=== PATIENT | male | born 1980 | race Caucasian/White ===

== ENCOUNTER → 2020-01-01 14:56 | Outpatient (BNVA) | payer OTHER, SELFPAY | PROVIDERS: PCP Family Medicine; Referring Provider Family Medicine; Visit Provider Internal Medicine | DX: E03.9 Hypothyroidism, unspecified (principal); R73.01 Impaired fasting glucose; F41.9 Anxiety disorder, unspecified; Z79.899 Other long term (current) drug therapy | CPT/HCPCS: 99204 ==

== ENCOUNTER 2020-01-03 08:20 | Outpatient (REF) | payer OTHER, SELFPAY ==
--- NOTE | 2020-01-03 08:26 | FL_ITS ---
PROCEDURE: XR UPPER GI SERIES WITH SMALL BOWEL CLINICAL INFORMATION: Abdominal pain. COMPARISON: None TECHNIQUE: Routine upper GI air contrast study followed by small bowel follow-through was performed. FINDINGS: Portal Administrator view of the abdomen reveals scattered stool in the colon. There are radiopaque tablets or capsules seen within the colon. Following oral administration of thick barium and effervescent granules there is normal propagation bolus from the oral cavity through the pharynx, esophagus into stomach without any evidence of obstruction, narrowing or stricture. The course, caliber and peristalsis of the stomach, duodenal bulb and the sweep are normal. There is no gastroesophageal reflux or hiatal hernia. The mucosal pattern of the stomach and the duodenum is normal. Sequential images obtained through the small bowel reveal significant delayed transit time of 3 hrs. Spot images through the ileocecal junction and the cecum reveal no abnormality involving terminal ileum or the ileal loops. The ileocecal junction is normal. Appendix is not seen. The cecum is normal. There is scattered stool seen throughout the entire colon. FLUOROSCOPY TIME: 3.4 minutes. DOSE AREA PRODUCT: 29.660 uGy-m2 (microgray-meter squared). FL/FL upper GI small bowel IMPRESSION: Unremarkable upper GI air contrast study and small bowel follow-through.
== END 2020-01-03 08:21 | disposition home or self-care (01) ==
LOC: HO.XRAY 08:20
PROVIDERS: Visit Provider Internal Medicine Gastroenterology
DX: R68.81 Early satiety (principal)
CPT/HCPCS: 74240; 74248

== ENCOUNTER 2020-01-08 16:16 | Outpatient (REF) | payer OTHER, SELFPAY ==
--- NOTE | 2020-01-08 16:21 | US_ITS ---
EXAMINATION: US THYROID CLINICAL INFORMATION: Hypothyroidism, unspecified. COMPARISON: None TECHNIQUE: Linear transducer tarango-scale and color Doppler examination with attention to the region of the thyroid. FINDINGS: SIZE: Measurements of the thyroid lobes and nodules are given in sagittal, anteroposterior and transverse dimensions respectively. Right Thyroid Lobe: 5.5 x 1.4 x 1.7 cm, volume 6.8 mL. Parenchyma: The gland echotexture is heterogeneous. Thyroid vascularity is increased. Left Thyroid Lobe: 4.9 x 1.3 x 1.6 cm, volume 5.3 mL. Parenchyma: The gland echotexture is heterogeneous. Thyroid vascularity is increased. Isthmus: 0.3 cm in maximum AP dimension. PARENCHYMA: There is fine micronodular parenchymal pattern which may be associated with Breanne's thyroiditis. There is no focal isolated dominant nodule. NODES: There is no lymphadenopathy demonstrated in the adjacent soft tissues. US/US thyroid IMPRESSION: 1. Thyroid within lower limits of normal size. There is bilateral symmetric increased parenchymal vascularity and fine micronodular pattern which may be associated with Breanne's thyroiditis. 2. No focal isolated dominant nodule or adenopathy.
== END 2020-01-08 16:17 | disposition home or self-care (01) ==
LOC: HO.US 16:16
PROVIDERS: Visit Provider Internal Medicine
DX: E03.9 Hypothyroidism, unspecified (principal)
CPT/HCPCS: 76536

== ENCOUNTER → 2020-01-20 09:46 | Outpatient (BNVA) | payer OTHER, SELFPAY | PROVIDERS: PCP Family Medicine; Visit Provider Internal Medicine Gastroenterology | DX: D64.9 Anemia, unspecified (principal); R10.84 Generalized abdominal pain; G89.29 Other chronic pain | CPT/HCPCS: 99212 ==

== ENCOUNTER 2020-01-21 12:45 | Outpatient (REF) | payer OTHER, SELFPAY ==
[2020-01-21 13:29] LABS: MANUAL DIFF FLAG NO
[2020-01-21 13:38] LABS: Basophils Percent Auto 0.2 % (0-2); Eosinophils Absolute Auto 0.1 X10*3/uL (0.0-0.4); Eosinophils Percent Auto 1.1 % (0-4); Hematocrit 40.6 % (42-52); Hemoglobin 12.6 g/dl (14.0-18.0); Imm Gran Abs Auto 0.02 X10*3/uL (0.00-0.03); Imm Gran Pct Auto 0.4 % (0.0-0.4); Lymphocytes Absolute Auto 1.3 X10*3/uL (1.2-4.9); Lymphocytes Percent Auto 24.2 % (20-40); Mean Corpuscular Hemoglobin 25.5 pg (27.0-33.0); Mean Platelet Volume 8.9 fL (9.4-12.4); Monocytes Absolute Auto 0.4 X10*3/uL (0.1-1.2); Monocytes Percent Auto 6.9 % (2-11); Neutrophils Absolute Auto 3.6 X10*3/uL (2.0-8.3); Neutrophils Percent Auto 67.2 % (45-73); Platelet Count 200 X10*3/uL (160-400); Red Blood Count 4.95 X10*6/uL (4.60-5.80); Red Cell Distribution Width 14.4 % (11.0-16.0); White Blood Count 5.4 X10*3/uL (4.8-10.8)
[2020-01-21 13:51] LABS: Estimated Average Glucose 120 mg/dL; Hemoglobin A1c % 5.8 %
[2020-01-21 13:54] LABS: Alanine Aminotransferase 67 U/L (0-40); Albumin Level 4.3 g/dL (3.5-5.0); Alkaline Phosphatase 47 U/L (39-117); Anion Gap 12 (12-20); Aspartate Amino Transferase 30 U/L (5-37); Bilirubin Total 0.7 mg/dL (0.0-1.0); Blood Urea Nitrogen 15 mg/dL (9-16); Calcium 9.2 mg/dL (8.4-10.2); Carbon Dioxide 31 mmol/L (22-29); Chloride 102 mmol/L (96-108); Estimated Glomerular Filt Rate > 60; Glucose Fasting 92 mg/dL (60-99); Potassium 4.8 mmol/l (3.3-5.1); Sodium 140 mmol/L (135-145); Total Protein 6.8 g/dL (6.5-8.0)
[2020-01-21 14:15] LABS: Free T4 (Free Thyroxine) 0.76 ng/dL (0.71-1.85); Thyroid Stimulating Hormone 1.86 uIU/mL (0.32-4.0)
[2020-01-21 14:28] LABS: Vitamin B12 588 pg/mL (200-900)
[2020-01-21 14:44] LABS: Amphetamine Screen Urine Not Detected (Not Detect); Barbiturates, Urine Not Detected (Not Detect); Benzodiazepines Screen Urine Not Detected (Not Detect); Cannabinoid Screen Urine Not Detected (Not Detect); Cocaine Screen Urine Not Detected (Not Detect); Opiate Screen Urine POSITIVE (Not Detect); Phencyclidine Screen Urine Not Detected (Not Detect)
[2020-01-21 16:17] LABS: Glucose 2 Hour PP 67 mg/dL (60-115)
[2020-01-22 22:03] LABS: Thyroglobulin Antibodies 5 IU/mL (< or = 1); Thyroid Peroxidase Antibodies 361 IU/mL (<9)
[2020-01-22 23:36] LABS: C Peptide 1.03 ng/mL (0.80-3.85)
[2020-01-23 01:32] LABS: Triiodothyronine T3 Total 81 ng/dL (76-181)
[2020-01-23 11:12] LABS: Insulin Level Total 5.5 uIU/mL
[2020-01-24 20:36] LABS: Glutamic acid decarboxylase Ab <5 IU/mL (<5)
[2020-01-28 00:01] LABS: Islet Cell Antibody Screen NEGATIVE (NEGATIVE)
[2020-01-28 14:42] LABS: Insulinoma associated 2 aatb <5.4 U/mL (<5.4)
== END 2020-01-21 12:46 | disposition home or self-care (01) ==
LOC: HO.LAB 12:45
PROVIDERS: PCP Family Medicine; Referring Provider Internal Medicine; Visit Provider Family Medicine
DX: D64.9 Anemia, unspecified (principal); R73.01 Impaired fasting glucose; F11.10 Opioid abuse, uncomplicated; E03.9 Hypothyroidism, unspecified; G89.29 Other chronic pain
CPT/HCPCS: 36415; 80053; 80307; 80354; 82607; 82951; 83036; 83525; 84439; 84443; 84480; 84681; 85025; 86255; 86341; 86376; 86800

== ENCOUNTER 2020-01-23 10:57 | Outpatient (REF) | payer OTHER, SELFPAY ==
--- NOTE | 2020-01-23 11:18 | PM.OP ---
Brief Operative Note Date of Service: 01/23/20 Surgeon: Pamela Rome DO EXAMINATION: US THYROID CLINICAL INFORMATION: Multinodular Thyroid COMPARISON: Prior TECHNIQUE: Linear transducer tarango-scale and color Doppler examination with attention to the region of the thyroid. FINDINGS: SIZE: Measurements of the thyroid lobes and nodules are given in sagittal, anteroposterior and transverse dimensions respectively. Right Thyroid Lobe: 5.5 x 1.5 x 1.7 cm, volume 7.2 mL. Parenchyma: The gland echotexture is diffusely heterogenous. Left Thyroid Lobe: 5.1 x 1.5 x 1.7 cm, volume 6.5 mL. Parenchyma: The gland echotexture is diffusely heterogenous. Isthmus: 0.2 cm in maximum AP dimension. The thyroid gland is small and heterogenous appearing. Multiple pseudonodules are visualized, but no true nodules. NODES: Lymph nodes not assessed. IMPRESSION: Small and heterogenous gland, with no true nodules visualized. Estimated blood loss (mL): 0
== END 2020-01-23 10:58 | disposition home or self-care (01) ==
LOC: HO.US 10:57
PROVIDERS: PCP Family Medicine; Visit Provider Internal Medicine
DX: E04.1 Nontoxic single thyroid nodule (principal)
CPT/HCPCS: 76536

== ENCOUNTER → 2020-02-19 11:45 | Outpatient (BNVA) | payer OTHER, SELFPAY | PROVIDERS: PCP Family Medicine; Referring Provider Family Medicine; Visit Provider Internal Medicine | DX: Z76.89 Persons encountering health services in other specified circumstances (principal) ==

== ENCOUNTER 2020-03-30 12:44 | Outpatient (REF) | payer OTHER, SELFPAY ==
[2020-03-30 14:02] LABS: Alanine Aminotransferase 48 U/L (0-40); Albumin Level 4.3 g/dL (3.5-5.0); Alkaline Phosphatase 55 U/L (39-117); Anion Gap 12 (12-20); Aspartate Amino Transferase 29 U/L (5-37); Bilirubin Total 0.7 mg/dL (0.0-1.0); Blood Urea Nitrogen 13 mg/dL (9-16); Calcium 9.3 mg/dL (8.4-10.2); Carbon Dioxide 31 mmol/L (22-29); Chloride 101 mmol/L (96-108); Estimated Glomerular Filt Rate > 60; Glucose Random 107 mg/dL (60-115); Potassium 4.9 mmol/l (3.3-5.1); Sodium 139 mmol/L (135-145); Total Protein 6.9 g/dL (6.5-8.0)
[2020-03-30 14:05] LABS: Glucose Urine UA NEG (NEG); Leukocyte Esterase Urine NEG (NEG); Nitrite Urine NEG (NEG); PH 7.5 (5.0-8.0); Specific Gravity - Urine 1.015 (1.005-1.025); Urine Blood NEG (NEG); Urine Ketones NEG (NEG); Urine Protein NEG (NEG-TRACE)
[2020-03-30 14:07] LABS: Appearance Urine CLOUDY; Color Urine YELLOW
[2020-03-30 14:15] LABS: Amphetamine Screen Urine Not Detected (Not Detect); Barbiturates, Urine Not Detected (Not Detect); Benzodiazepines Screen Urine POSITIVE (Not Detect); Cannabinoid Screen Urine Not Detected (Not Detect); Cocaine Screen Urine Not Detected (Not Detect); Opiate Screen Urine POSITIVE (Not Detect); Phencyclidine Screen Urine Not Detected (Not Detect)
[2020-03-30 14:26] LABS: Prostate Specific Antigen Scr 0.56 ng/mL (<0.05-4.0)
[2020-04-01 21:42] LABS: Norfentanyl, Ur >500.0 ng/mL (<0.5)
[2020-04-04 13:26] LABS: Testosterone, Free 77.4 pg/mL (35.0-155.0); Testosterone, Total 440 ng/dL (250-1100)
== END 2020-03-30 12:45 | disposition home or self-care (01) ==
LOC: HO.LAB 12:44
PROVIDERS: PCP Family Medicine; Visit Provider Family Medicine
DX: R10.84 Generalized abdominal pain (principal); G89.29 Other chronic pain; R68.82 Decreased libido; N52.9 Male erectile dysfunction, unspecified; Z87.438 Personal history of other diseases of male genital organs; Z12.5 Encounter for screening for malignant neoplasm of prostate
CPT/HCPCS: 80053; 80307; 80354; 81003; 84153; 84402; 84403

== ENCOUNTER → 2020-03-31 10:34 | Outpatient (BNVA) | payer OTHER, SELFPAY | PROVIDERS: PCP Family Medicine; Visit Provider Internal Medicine Gastroenterology ==

== ENCOUNTER 2020-04-24 13:57 | Outpatient (REF) | payer OTHER, SELFPAY | END 2020-04-24 13:58 | disposition home or self-care (01) | LOC: HO.LNP 13:57 | PROVIDERS: Visit Provider Family Medicine | DX: R05 Cough (principal); Z20.822 Contact with and (suspected) exposure to COVID-19 | CPT/HCPCS: U0003; U0005 ==

== ENCOUNTER 2020-05-11 15:44 | Outpatient (REF) | payer OTHER, SELFPAY | END 2020-05-11 15:45 | disposition home or self-care (01) | LOC: HO.LAB 15:44 | PROVIDERS: Visit Provider Internal Medicine | DX: Z20.822 Contact with and (suspected) exposure to COVID-19 (principal) | CPT/HCPCS: 36415; C9803; U0003; U0005 ==

== ENCOUNTER 2020-05-13 10:49 | Day surgery (SDC) | payer OTHER, SELFPAY ==
[2020-05-07 15:10] VITALS: BMI 22.2
--- NOTE | 2020-05-12 09:31 | HO.ANESPROP2 ---
Documented by User: Alexsandra Hagerney 05/12/20 09:34 HPI - Anesthesia Eval Consult details Narrative: 39yo M for Upper Endoscopy and Colonoscopy +COVID 04/2020. Repeated test 05/11/20: Results pending. chronic opioids PMFSH Active Problems Active Problems: All Active Problems (Updated 05/07/20 @ 15:12 by Lali Carter) Opioid abuse (Acute) Abdominal pain, chronic, generalized (Acute) Mild anemia (Acute) Anxiety (Acute) Rhinitis (Acute) Decreased libido (Acute) Erectile dysfunction (Acute) History of BPH (Acute) Cough (Acute) Thyroid nodule (Acute) Hypothyroidism (Acute) Elevated fasting blood sugar (Acute) Past Medical History Medical History Anxiety Depression Elevated fasting blood sugar GERD (gastroesophageal reflux disease) Hypothyroidism Lab test positive for detection of COVID-19 virus Mild anemia Opioid abuse Thyroid nodule Family History Family History Father T2DM (type 2 diabetes mellitus) Mother No problems noted. Sister No problems noted. Surgical History Surgical History Hx of endoscopy Hx of wisdom tooth extraction Social History Social History Household Members: None Alcohol intake: never Smoking Status: Former smoker Tobacco Type: Cigarette Smoking Quit Date: 2016 Use of substances other than those prescribed or required for medical reasons: Yes Substance Use Type: Opiates Substance Use Type Other:: occasionally purchases opiates (street) Substance Use Frequency: Occasionally Have you been hit, kicked, punched, or otherwise hurt by someone within the past year? 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 Meds Allergies Allergy/AdvReac Type Severity Reaction Status Date / Time gluten Allergy Mild Rash Verified 05/13/20 11:13 Home Medications Medication Instructions Recorded Confirmed Last Taken Type amitriptyline-chlordiazepoxide 25 1 tab PO BEDTIME 12/31/19 04/24/20 Unknown History mg-10 mg tablet pqqqjjlfpz-bdhvezgkjdfsg-pkacqqmm 1 tab PO BID 12/31/19 05/07/20 Unknown History 50 mg-325 mg-40 mg tablet cetirizine 10 mg tablet 10 mg PO DAILY 12/31/19 05/07/20 Unknown History chlorhexidine gluconate 0.12 % ml PO 12/31/19 02/19/20 Unknown History mouthwash clotrimazole-betamethasone 1 applic TOPICAL 12/31/19 04/24/20 Unknown History %-0.05 % topical cream cyclobenzaprine 10 mg tablet 10 mg PO BID PRN 12/31/19 02/19/20 Unknown History diclofenac sodium 75 mg 75 mg PO BID 12/31/19 02/19/20 Unknown History tablet,delayed release hydroxyzine HCl 50 mg tablet 50 mg PO BEDTIME PRN 12/31/19 02/19/20 Unknown History magnesium citrate 296 ml PO ONCE 12/31/19 02/19/20 Unknown History methylprednisolone 4 mg tablets in mg PO 12/31/19 02/19/20 Unknown History a dose pack oxycodone-acetaminophen 5 mg-325 1 tab PO Q4H PRN 12/31/19 05/07/20 Unknown History mg tablet trazodone 50 mg tablet 50 mg PO BEDTIME 12/31/19 05/07/20 Unknown History clonazepam 1 mg tablet 1 mg PO BEDTIME 03/20/20 05/07/20 Unknown History lactulose 10 g PO DAILY 05/07/20 05/07/20 Unknown History Exam Exam Date and Time: May 12, 2020 0931 Height,Weight and Vital Signs: Height 5 ft 10 in Weight 70.307 kg Pertinent Lab Results Pertinent Lab Results: Laboratory Tests 01/21/20 03/30/20 13:10 13:00 WBC 5.4 Hgb 12.6 L Hct 40.6 L Plt Count 200 Sodium 139 Potassium 4.9 Chloride 101 Carbon Dioxide 31 H BUN 13 Creatinine 0.95 Assessment and Plan Assessment Anesthesia Assessment: Chart Reviewed Documented by User: Alexa Horner 05/13/20 11:40 PMFSH Past Medical History Medical History Anxiety Depression Elevated fasting blood sugar GERD (gastroesophageal reflux disease) Hypothyroidism Lab test positive for detection of COVID-19 virus Mild anemia Opioid abuse Thyroid nodule Family History Family History Father T2DM (type 2 diabetes mellitus) Mother No problems noted. Sister No problems noted. Surgical History Surgical History Hx of endoscopy Hx of wisdom tooth extraction Social History Social History Household Members: None Alcohol intake: never Smoking Status: Former smoker Tobacco Type: Cigarette Smoking Quit Date: 2016 Use of substances other than those prescribed or required for medical reasons: Yes Substance Use Type: Opiates Substance Use Type Other:: occasionally purchases opiates (street) Substance Use Frequency: Occasionally Have you been hit, kicked, punched, or otherwise hurt by someone within the past year? 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 Meds Allergies Allergy/AdvReac Type Severity Reaction Status Date / Time gluten Allergy Mild Rash Verified 05/13/20 11:13 Home Medications Medication Instructions Recorded Confirmed Last Taken Type amitriptyline-chlordiazepoxide 25 1 tab PO BEDTIME 12/31/19 04/24/20 Unknown History mg-10 mg tablet biltqgipkb-ecdfnzstgaskh-zmqddnzj 1 tab PO BID 12/31/19 05/07/20 Unknown History 50 mg-325 mg-40 mg tablet cetirizine 10 mg tablet 10 mg PO DAILY 12/31/19 05/07/20 Unknown History chlorhexidine gluconate 0.12 % ml PO 12/31/19 02/19/20 Unknown History mouthwash clotrimazole-betamethasone 1 applic TOPICAL 12/31/19 04/24/20 Unknown History %-0.05 % topical cream cyclobenzaprine 10 mg tablet 10 mg PO BID PRN 12/31/19 02/19/20 Unknown History diclofenac sodium 75 mg 75 mg PO BID 12/31/19 02/19/20 Unknown History tablet,delayed release hydroxyzine HCl 50 mg tablet 50 mg PO BEDTIME PRN 12/31/19 02/19/20 Unknown History magnesium citrate 296 ml PO ONCE 12/31/19 02/19/20 Unknown History methylprednisolone 4 mg tablets in mg PO 12/31/19 02/19/20 Unknown History a dose pack oxycodone-acetaminophen 5 mg-325 1 tab PO Q4H PRN 12/31/19 05/07/20 Unknown History mg tablet trazodone 50 mg tablet 50 mg PO BEDTIME 12/31/19 05/07/20 Unknown History clonazepam 1 mg tablet 1 mg PO BEDTIME 03/20/20 05/07/20 Unknown History lactulose 10 g PO DAILY 05/07/20 05/07/20 Unknown History Exam Airway Mallampati Class: II TM Dist: >3cm Neck ROM: Full Loose/Missing/Broken Teeth: No Heart: RRR Lungs: CTA Assessment and Plan Assessment Anesthesia Assessment: Anesthesia Plan Discussed and Chart Reviewed Final Anesthetic Review NPO: Yes Final Preanesthetic Review: Meds/Allgs Chart Reviewed, Consent Obtained/Reviewed and Anes Risks/Benef Reviewed Patient Risk: Intermediate Procedure Risk: Intermediate Anesthetic Plan Anesthetic Plan: MAC: Disposition: Standard PACU
[2020-05-13 11:10] VITALS: BP 112/77; PULSE 83; RESP 18; TEMP 36.7; O2SAT 99
[2020-05-13] MEDS: Lactated Ringers 1,000 ML 100 ML IVCONT (11:39)
--- NOTE | 2020-05-13 11:51 | P.HPSUR_ITS ---
Pre-Procedural Eval Section B Chief Complaint: Anemia,Abd Pain Relevant Family History (Specify if Yes): No Relevant Social History: None Present Medications: see Short Stay Collaborative assessment Medical History: Significant History (Anxiety Depression Elevated fasting blood sugar GERD (gastroesophageal reflux disease) Hypothyroidism Lab test positive for detection of COVID-19 virus Mild anemia Opioid abuse Thyroid nodule) History of Previous Operations: Relevant previous surgery/procedure and date(s) (wisdom tooth) Allergies: Allergies Allergy/AdvReac Type Severity Reaction Status Date / Time gluten Allergy Mild Rash Verified 05/13/20 11:13 Review of Systems Sugical H&P ROS: Negative: Constitution, Cardiovascular, Respiratory, Neurological, Psychiatric, Hem-Onc, Allergic/Immunologic, Gastrointestinal, Genitourinary, Musculoskeletal, Integumentary, Endocrine and Eyes/Ears /Nose/Throat Exam Surgical H&P Exam: Normal: HEENT, Normal: Heart, Normal: Lungs, Normal: Extremities, Normal: Abdomen, Normal: Skin and Normal: Neurological Plan Diagnosis/Plan: Unchanged I have reviewed the history and physical and performed a pertinent physical examination on my patient. No changes have occurred unless specified.
--- NOTE | 2020-05-13 12:15 | PM.OP ---
Brief Operative Note Date of Service: 05/13/20 Pre-op diagnosis: anemia, abdo pain Post-op diagnosis: same Procedure: see op note Surgeon: Socrates Farisa MD Anesthesia: MAC Estimated blood loss (mL): 0 Condition: stable Disposition: PACU
--- NOTE | 2020-05-13 12:15 | W.PM.OPN ---
Operative Note Operative Note Date of Service: 05/13/20 Narrative: Operative Information Procedure Description: EGD, Colonoscopy FLEXIBLE TRANSORAL UPPER GASTROINTESTINAL ENDOSCOPY AND COLONOSCOPY PROCEDURE NOTE UPPER ENDOSCOPY Consent: Indications for the procedure and potential complications of bleeding, perforation, reaction to medications and missed diagnosis were discussed with the patient and informed consent was obtained. Instrument: Olympus GIF H 190 J mid size upper endoscope Monitoring: Vital signs and clinical assessment, continuous EKG monitoring, Pulse oximetry, Carbon Dioxide monitoring and blood pressure monitoring were done throughout the procedure. Procedure: The patient was placed in the left lateral decubitis position and pre-procedure medications were administered and a bite block was placed. The endoscope was inserted into the mouth and advanced under direct vision to the third part of duodenum. A careful inspection was made as the upper endoscope was withdrawn including a retroflexed examination of the proximal stomach; Findings and interventions are described below. Findings: Larynx:normal Esophagus: GE junction at 40 cm, diaphragm hiatus at 40 cm, irregular z line with mild inflammation bx taken Stomach: erythematous mucosa with patchy scarring. Biopsies were obtained. Grade 2 flap valve on retroflexed examination of the cardia. Bilious fluid also noted in stomach Duodenum: Normal bulb and descending duodenum, bx taken Intervention: Biopsies as noted above COLONOSCOPY Instrument: Olympus variable stiffness pediatric scope 190L Colonoscopy Monitoring: Vital signs and clinical assessment, continuous EKG monitoring, Pulse oximetry, Carbon Dioxide monitoring and blood pressure monitoring were done throughout the procedure. Colon withdrawal time was 24 minutes. Procedure: The patient was placed in the left lateral decubitis position and pre-procedure medications were administered. After a digital rectal examination of the ano-rectum, the video colonoscope was inserted into the rectum and advanced through the colon to the cecum/TI. The colonoscope was slowly withdrawn in a retrograde panoramic fashion and the colon mucosa was carefully examined including a retroflexed view of the rectum. Findings and interventions are described below. Procedure Difficulty:easy Findings: Terminal Ileum-normal, bx taken random colon bx taken, one biopsy site in ascending was oozing persistently so clip applied with hemostasis Cecum:normal Ascending Colon: normal Transverse Colon -normal Descending Colon:normal Sigmoid Colon: 8-10 mm sessile polyp removed with cold snare Rectum: Retroflexion with small internal hemorrhoids, grade I Anorectum - normal Colon preparation: [place] Bowel Preparation Scale Right colon; 3 Transverse colon: 3 Left colon; 1 (0 = Unprepared colon segment with mucosa not seen due to solid stool that cannot be cleared. 1 = Portion of mucosa of the colon segment seen, but other areas of the colon segment not well seen due to staining, residual stool and/or opaque liquid. 2 = Minor amount of residual staining, small fragments of stool and/or opaque liquid, but mucosa of colon segment seen well. 3 = Entire mucosa of colon segment seen well with no residual staining, small fragments of stool or opaque liquid) Impression and Post Procedure Diagnosis: Endoscopy Findings: gastritis Colonoscopy Findings: internal hemorrhoids polyp Plan: Await Pathology results Repeat Colonoscopy at age 45 or earlier if clinically indicated High fiber diet leaflet avoid straining at stool, epsom salts and sitz bath, anusol supps or cream as needed can consider capsule endoscopy for further work up given anemia, will await bx results first Above findings were reviewed with the patient and relevant handouts were provided if indicated.
[2020-05-13 12:55] VITALS: BP 125/80; PULSE 69; RESP 18; TEMP 36.6; O2SAT 100
[2020-05-13 13:10] VITALS: BP 127/80; PULSE 71; RESP 18; TEMP 36.6; O2SAT 99
[2020-05-13] MEDS: oxyCODONE HCl Immed Release 5 MG TABLET 10 MG PO (13:31)
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
== END 2020-05-13 14:25 | disposition home or self-care (01) ==
PROVIDERS: PCP Family Medicine; Visit Provider Internal Medicine Gastroenterology
PROC: (CPT 45385; principal; 2020-05-13 12:00)
DX: D64.9 Anemia, unspecified (principal); K63.5 Polyp of colon; K62.1 Rectal polyp; K64.0 First degree hemorrhoids; K29.70 Gastritis, unspecified, without bleeding; K21.9 Gastro-esophageal reflux disease without esophagitis; K44.9 Diaphragmatic hernia without obstruction or gangrene; E03.9 Hypothyroidism, unspecified; R73.9 Hyperglycemia, unspecified; F11.20 Opioid dependence, uncomplicated; Z79.899 Other long term (current) drug therapy
CPT/HCPCS: 45385; 45380; 43239; 88305; 88342; J2250

== ENCOUNTER → 2020-05-27 11:34 | Outpatient (BNVA) | payer OTHER, SELFPAY | PROVIDERS: PCP Family Medicine; Visit Provider Internal Medicine ==

== ENCOUNTER → 2020-07-03 10:40 | Outpatient (BNVA) | payer OTHER, SELFPAY | PROVIDERS: PCP Family Medicine; Visit Provider Internal Medicine Gastroenterology | DX: R10.84 Generalized abdominal pain (principal); G89.29 Other chronic pain; D64.9 Anemia, unspecified ==

== ENCOUNTER 2020-11-18 13:56 | Outpatient (REF) | payer OTHER, SELFPAY ==
[2020-11-18 16:47] LABS: Estimated Average Glucose 114 mg/dL; Hemoglobin A1c % 5.6 %
[2020-11-18 17:10] LABS: Free T4 (Free Thyroxine) 0.88 ng/dL (0.71-1.85); Thyroid Stimulating Hormone 3.01 uIU/mL (0.32-4.0)
== END 2020-11-18 13:57 | disposition home or self-care (01) ==
LOC: HO.HMGCLDS 13:56
PROVIDERS: PCP Family Medicine; Visit Provider Internal Medicine
DX: E04.1 Nontoxic single thyroid nodule (principal); R73.01 Impaired fasting glucose
CPT/HCPCS: 36415; 83036; 84439; 84443

== ENCOUNTER → 2020-12-23 12:36 | Outpatient (BNVA) | payer OTHER, SELFPAY | PROVIDERS: PCP Family Medicine; Visit Provider Nurse Practitioner Gerontology ==

== ENCOUNTER 2021-02-02 13:00 | Outpatient (RCR) | payer OTHER, SELFPAY ==
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
--- NOTE | 2021-02-16 08:05 | MHC.PT.DC ---
[facility] [place] Office [place] Office [place] Office [address] Francisca Colby [address] [phone] F: [phone] F: [phone] F: [phone] F: [phone] Physical Therapy Discharge Report Diagnosis: This is a 40 yo male presenting to skilled PT with a script for cervicalgia. Date of Surgery: Date of Evaluation: 01/07/21 Date of Discharge: 02/16/21 Treatments to Date: 3 Cancellations to Date: 1 No Shows to Date: 2 Discharge Status: Visit Non-compliance Discharge Summary: Patient with multiple occurrences of visit non-compliance and was educated on DC due to facility policy. He was educated with an spanish interpreter as well. Electronically signed by: Johanna Black, PT Please sign and return to therapist. Thank you for your referral.
== END 2021-02-16 08:06 | disposition home or self-care (01) ==
LOC: HO.PTCHIC 13:00
PROVIDERS: PCP Family Medicine; Visit Provider Family Medicine
DX: M54.2 Cervicalgia (principal)
CPT/HCPCS: 97110; 97140; 97162

== ENCOUNTER 2021-02-11 12:18 | Outpatient (REF) | payer OTHER, SELFPAY ==
[2021-02-11 14:26] LABS: Alanine Aminotransferase 18 U/L (0-40); Albumin Level 4.3 g/dL (3.5-5.0); Alkaline Phosphatase 57 U/L (39-117); Anion Gap 11 (12-20); Aspartate Amino Transferase 21 U/L (5-37); Bilirubin Total 0.6 mg/dL (0.0-1.0); Blood Urea Nitrogen 16 mg/dL (9-16); Calcium 9.2 mg/dL (8.4-10.2); Carbon Dioxide 29 mmol/L (22-29); Chloride 103 mmol/L (96-108); Cholesterol 189 mg/dL; Estimated Glomerular Filt Rate > 60; Glucose Fasting 86 mg/dL (60-99); HDL Cholesterol 46 mg/dL; LDL Cholesterol Calculated 131 mg/dl; Potassium 4.3 mmol/L (3.3-5.1); Sodium 139 mmol/L (135-145); Triglycerides 63 mg/dL
[2021-02-11 14:50] LABS: Prostate Specific Antigen Scr 1.26 ng/mL (<0.05-4.0)
== END 2021-02-11 12:19 | disposition home or self-care (01) ==
LOC: HO.HMGCLDS 12:18
PROVIDERS: Visit Provider Family Medicine
DX: Z00.00 Encounter for general adult medical examination without abnormal findings (principal); Z12.5 Encounter for screening for malignant neoplasm of prostate
CPT/HCPCS: 36415; 80053; 80061; 84153

== ENCOUNTER → 2021-02-12 10:31 | Outpatient (REF) | payer OTHER, SELFPAY ==
--- NOTE | 2021-02-12 10:35 | CA_ITS ---
Acquisition Time: 2021-02-12 10:37:58 Total Exercise Time: 00:09:27 Test Indications: CP Medications: SEE CHART Protocol: TIMOTHY Max HR: 155 BPM 87% of Pred: 178 BPM Max BP: 140/048 mmHG Max Work Load: 10.8 METS Exercise stress test with exercise 9 min 27 sec of Timothy protocol, with mild sob, no chest discomfort, without arrythmia, with normotensive response to exercise, without EKG changes meeting criteria for ischemia. Test reviewed with Dr Osman. Referred By: Myles Thakur Overread By: MARY LOU CARUSO
== END ==
LOC: HO.CARD 10:31
PROVIDERS: Visit Provider Family Medicine
DX: R07.9 Chest pain, unspecified (principal)
CPT/HCPCS: 93017

== ENCOUNTER 2021-09-21 13:49 | Outpatient (REF) | payer OTHER, SELFPAY ==
--- NOTE | ~2021-09-21 | XR_ITS ---
EXAMINATION: XR KNEE, RIGHT CLINICAL INFORMATION: Pain COMPARISON: None TECHNIQUE: Four views of the right knee. FINDINGS: Bones and soft tissues are normal. No fracture or joint effusion. Alignment is anatomic. Joint spaces are well maintained. No abnormal soft tissue calcification. XR/XR knee RT 3V IMPRESSION: Normal right knee.
== END 2021-09-21 13:50 | disposition home or self-care (01) ==
LOC: HO.XRAY 13:49
PROVIDERS: PCP Family Medicine; Visit Provider Family Medicine
DX: M25.561 Pain in right knee (principal); M25.461 Effusion, right knee
CPT/HCPCS: 73562

== ENCOUNTER 2021-09-28 12:50 | Outpatient (REF) | payer OTHER, SELFPAY ==
--- NOTE | ~2021-09-28 | XR_ITS ---
EXAMINATION: XR KNEE AP STANDING, RIGHT CLINICAL INFORMATION: Right knee pain COMPARISON: None TECHNIQUE: AP bilateral standing view of the knees was obtained. Right knee 2 views. FINDINGS: AP BILATERAL KNEE: The medial and lateral compartment joint space is maintained normal. There is no visible acute fracture, dislocation or bony erosive changes. RIGHT KNEE: 2 views of right knee reveal normal patellofemoral compartment joint space. No visible acute fracture, dislocation or bony erosive changes seen. XR/XR knee standing BI IMPRESSION: 1. Unremarkable bilateral knee AP standing. 2. Normal right knee exam.
--- NOTE | ~2021-09-28 | XR_ITS ---
EXAMINATION: XR KNEE AP STANDING, RIGHT CLINICAL INFORMATION: Right knee pain COMPARISON: None TECHNIQUE: AP bilateral standing view of the knees was obtained. Right knee 2 views. FINDINGS: AP BILATERAL KNEE: The medial and lateral compartment joint space is maintained normal. There is no visible acute fracture, dislocation or bony erosive changes. RIGHT KNEE: 2 views of right knee reveal normal patellofemoral compartment joint space. No visible acute fracture, dislocation or bony erosive changes seen. XR/XR knee RT 1V IMPRESSION: 1. Unremarkable bilateral knee AP standing. 2. Normal right knee exam.
== END 2021-09-28 12:51 | disposition home or self-care (01) ==
LOC: HO.HOSX 12:50
PROVIDERS: Visit Provider Physician Assistant
DX: M23.91 Unspecified internal derangement of right knee (principal)
CPT/HCPCS: 73560; 73565; 99202; 99212

== ENCOUNTER 2021-10-08 15:41 | Outpatient (REF) | payer OTHER, SELFPAY ==
--- NOTE | ~2021-10-08 | MR_ITS ---
EXAMINATION: MR KNEE WITHOUT CONTRAST, RIGHT CLINICAL INFORMATION: Internal derangement of the knee COMPARISON: None TECHNIQUE: MRI of the knee without contrast was performed using routine sequences on a high-field scanner. FINDINGS: MENISCI: Medial Meniscus: Complex tear of the posterior horn. There is undersurface tearing, component of tear extending to the superior and undersurface in the midportion of the posterior horn. Lateral Meniscus: Degenerative fraying of the posterior root. Otherwise intact. LIGAMENTS: Cruciate: Intact Collateral: Intact EXTENSOR MECHANISM: Intact ARTICULAR CARTILAGE/BONE: Patellofemoral Compartment: No significant cartilage loss. Medial Compartment: Edema in the posterior tibia and the medial aspect of medial femoral condyle, could be reactive, represent bone bruise. No focal cartilage loss is seen. Lateral Compartment: Patchy edema in the lateral aspect of the lateral tibial plateau, perhaps bone bruise. No fracture. No significant cartilage loss. JOINT FLUID AND BURSAE: Small effusion. Small complex Bazan's cyst. MR/MR knee RT wo con IMPRESSION: 1. Complex tear of the posterior horn medial meniscus. 2. Posterior labral degenerative fraying of the lateral meniscus. 3. Edema in the posterior medial tibial plateau and medial femoral condyle, could represent bone bruise or reactive edema. Nonspecific edema in the lateral aspect lateral tibial plateau, perhaps bone bruise. 4. Small effusion. Small Bazan's cyst.
== END 2021-10-08 15:42 | disposition home or self-care (01) ==
LOC: HO.MRI 15:41
PROVIDERS: Visit Provider Physician Assistant
DX: M23.91 Unspecified internal derangement of right knee (principal)
CPT/HCPCS: 73721

== ENCOUNTER → 2021-10-21 15:23 | Outpatient (BNVA) | payer OTHER, SELFPAY | PROVIDERS: PCP Family Medicine; Visit Provider Physician Assistant | DX: Z01.818 Encounter for other preprocedural examination (principal); S83.241A Other tear of medial meniscus, current injury, right knee, initial encounter | CPT/HCPCS: 99212 ==

== ENCOUNTER → 2021-11-03 08:50 | Day surgery (SDC) | payer OTHER, SELFPAY ==
[2021-10-28 10:40] VITALS: BMI 24.3
[2021-11-03 09:43] VITALS: BP 121/80; PULSE 81; RESP 16; TEMP 36.7; O2SAT 94
[2021-11-03 10:01] LABS: Amphetamine Screen Urine Not Detected (Not Detect); Barbiturates, Urine Not Detected (Not Detect); Benzodiazepines Screen Urine Not Detected (Not Detect); Cannabinoid Screen Urine Not Detected (Not Detect); Cocaine Screen Urine Not Detected (Not Detect); Fentanyl, urine POSITIVE (Not Detect); Opiate Screen Urine Not Detected (Not Detect); Phencyclidine Screen Urine Not Detected (Not Detect)
--- NOTE | 2021-11-03 10:55 | PC.NURSE ---
pt admitted to using fentayl at 3 and 8am. urine sent per anesthesia order and positive. surgery cancelled.
== END | disposition home or self-care (01) ==
PROVIDERS: Anesthesiology; PCP Family Medicine; Visit Provider Orthopaedic Surgery
DX: S83.241A Other tear of medial meniscus, current injury, right knee, initial encounter (principal); Z53.09 Procedure and treatment not carried out because of other contraindication; R82.5 Elevated urine levels of drugs, medicaments and biological substances
CPT/HCPCS: 80307

== ENCOUNTER 2023-03-28 13:07 | Outpatient (AMB) | payer OTHER, SELFPAY ==
--- NOTE | 2023-03-27 17:26 | MHC.PC.OV ---
Vital Signs 03/27/23 17:27 BP 112/60 Blood Pressure Location Lt brachial Position Sitting Pulse 94 Pulse Source Pulse Oximeter Temp 96.7 F L Temp Source Temporal Artery Scan Pulse Oximetry (%) 98 Oxygen Delivery Method Room Air Intake Visit Reasons: ED follow up, [facility].blood in stool Vascular Nurse Required: No Accompanied by: Self / Same As Patient Allergies gluten Allergy (Mild, Verified 03/27/23 17:43) Rash Medication List - Last Reconciled 03/27/23 by Lindy Silva CNP adapalene 0.1% (Differin) 1 appl topical BEDTIME 30 days betamethasone valerate 0.1% 1 appl topical DAILY PRN 14 days buspirone 5 mg PO BID 30 days clindamycin phosphate 1% (Clindagel) 1 appl topical DAILY 30 days clotrimazole-betamethasone 1-0.05 % 1 appl topical BID 14 days levothyroxine 25 mcg PO DAILY 30 days multivitamin 1 tab PO DAILY Tobacco use date assessed: 05/21/21 HPI HPI Comments History of Present Illness Details 42-year-old male presents for a follow-up visit He was evaluated and treated at [facility] ED on 12/22/2022 for complaints of abdominal pain, constipation, and blood in the stool Abdominal CT revealed colitis without evidence of obstruction; probable renal cysts on the right; small focal area of fatty infiltration of the liver. He was prescribed prednisone taper and amitriptyline 10 mg daily at bedtime for 14 days He has history of opiate dependence and currently intermittent use of inhaled fentanyl He notes that he has been following the FOODMOP diet and taking miralax with relief. He denies acute abdominal, blood in stool, or constipation He reports interrupted sleep for about a year. He attributes his symptoms to anxiety. He notes that he no longer takes Buspirone due to adverse reaction of drowsiness. He notes that amitriptyline was effective for sleep disturbances. [facility] Medical History Anxiety Depression Elevated fasting blood sugar GERD (gastroesophageal reflux disease) Breanne's disease Hypothyroidism Lab test positive for detection of COVID-19 virus Mild anemia Opioid abuse Thyroid nodule Surgical History H/O colonoscopy Hx of endoscopy Hx of wisdom tooth extraction Family History Father T2DM (type 2 diabetes mellitus) Substance use disorder Mother No problems noted. Sister No problems noted. 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 Og Freitas, Charity Baez, Theodore Yusuf and colleagues, with an educational monse from [employer]. Review of Systems Const Details: Const Denies chills, Denies fatigue, Denies fever(s), Denies headache(s) and Denies weakness ENT Denies dizziness and Denies headache(s) Card Denies chest pain, Denies lightheadedness, Denies dyspnea and Denies other (Palpitations) Resp Denies cough, Denies dyspnea, Denies wheezing and Denies other ( shortness of breath) GI Denies abdominal pain, Denies melena, Denies hematochezia, Denies change in bowel habits, Denies dyspepsia and Denies nausea Denies hematuria and Denies dysuria Musc Denies abnormal gait, Denies myalgias, Denies arthralgias, Denies numbness and Denies tingling Skin/Breast Denies rash, Denies unusual bruising and Denies wounds Neuro Denies abnormal gait, Denies dizziness, Denies headache(s), Denies memory loss, Denies numbness, Denies Sensory deficit (Neuro), Denies tingling and Denies weakness Psych Denies anxiety, Denies depression, Denies memory loss Endo Denies cold intolerance, Denies fatigue, Denies heat intolerance, Denies polydipsia and Denies polyuria Aller/Immun Denies wheezing Physical exam (Primary Care) Vital Signs: Last Vital Signs Temp 96.7 F L 03/27/23 17:27 Pulse 94 03/27/23 17:27 BP 112/60 03/27/23 17:27 Pulse Ox 98 03/27/23 17:27 Oxygen Delivery Method Room Air 03/27/23 17:27 Tobacco/Smoking Status: Tobacco use Status Tobacco use date assessed 05/21/21 03/27/23 17:39 Patient Tobacco Use Status Former Tobacco user 03/27/23 17:39 e-Cigarette/Vaping Use Never Used 03/27/23 17:39 Thrive Assessment: Date of Thrive Assessment Date Thrive assessed 02/19/21 03/27/23 17:39 Const Other: General: no acute distress and well developed Nutritional Appearance: well nourished Orientation/consciousness: patient oriented x3 HENMT Head: Yes normocephalic and Yes atraumatic Eyes General: appearance normal, both eyes and all related structures Pupils: Equal, round and reactive pupils present EOM: EOMs intact bilaterally Resp Effort & Inspection: normal respiratory effort Auscultation: clear to auscultation bilaterally Cardio Rate: regular rate Rhythm: regular rhythm Heart sounds: S1 normal heart sound present, S2 normal heart sound present, no gallops, no murmurs and no rubs GI Palpation (GI): No Abdominal aortic bruit present, Soft to palpation, nontender, No hepatosplenomegaly present and No Rebound tenderness present Auscultation: normal bowel sounds General: Yes no CVA tenderness Back/Spine/Pelvis Back: no CVA tenderness Cervical Spine: cervical ROM normal and No Cervical spine tenderness Thoracic/Lumbar Spine: thoraco-lumbar ROM normal, No pain with thoraco-lumbar ROM, No thoracic spinal tenderness and No lumbar spinal tenderness Extrem General: Yes normal to inspection, No edema and No calf tenderness Skin General: warm and dry. Normal skin color. Normal skin turgor Lesions: no lesions Rashes: no rashes Trauma: no lacerations or abrasions Wounds: no wounds Nails: normal Neuro General: patient oriented x3, gait normal and no focal neuro deficit Cranial nerves: Yes Equal, round and reactive pupils present Cognition (Neuro): normal cognition Gait exam (Neuro): Normal gait present Sensory Exam: No Sensory deficit (Neuro) Psych Appearance: grossly normal Affect: normal affect Attitude: cooperative Thought process: Normal thought process present Assessment and Plan Assessment & Plan (1) Sleep disturbance: Code(s): G47.9 - Sleep disorder, unspecified Plan: Reports interrupted sleep for about a year Amitriptyline ordered. Take as prescribed Routine exercise and sleep hygiene instructed and encouraged Advised to follow-up with PCP with new or worsening symptoms Verbalized understanding and agreed with treatment plan (2) Colitis: Code(s): K52.9 - Noninfective gastroenteritis and colitis, unspecified Plan: Controlled on FOODMOP diet and taking miralax Continue current treatment regimen Follow-up with PCP with symptoms or concerns Verbalized understanding and agreed with treatment plan Medications: New amitriptyline 10 mg PO BEDTIME 14 tabs 0RF 14 days Coding Level of Care Code Est Pt Level 4 (71305) Diagnoses Sleep disturbance G47.9 Colitis K52.9
[2023-03-27 17:27] VITALS: BP 112/60; PULSE 94; TEMP 35.9; O2SAT 98
== END 2023-03-28 15:39 | disposition home or self-care (01) ==
LOC: HO.HMGFM 13:07
PROVIDERS: PCP Family Medicine; Visit Provider Nurse Practitioner Family
DX: G47.9 Sleep disorder, unspecified (principal); K52.9 Noninfective gastroenteritis and colitis, unspecified
CPT/HCPCS: 99214

== ENCOUNTER 2024-01-10 12:15 | Outpatient (REF) | payer OTHER, SELFPAY ==
[2024-01-10 18:18] LABS: Appearance Urine Cloudy; Color Urine Yellow; Glucose Urine UA Negative (Negative); Leukocyte Esterase Urine Negative (Negative); Nitrite Urine Negative (Negative); PH 6.5 (5.0-9.0); Specific Gravity - Urine 1.025 (1.005-1.025); Urine Blood Negative (Negative); Urine Ketones Negative (Negative); Urine Protein Negative (Neg-Trace)
== END 2024-01-10 12:16 | disposition home or self-care (01) ==
LOC: HO.LAB 12:15
PROVIDERS: PCP Family Medicine; Visit Provider Family Medicine
DX: Z00.00 Encounter for general adult medical examination without abnormal findings (principal); R35.0 Frequency of micturition; G47.9 Sleep disorder, unspecified; E03.9 Hypothyroidism, unspecified; F19.90 Other psychoactive substance use, unspecified, uncomplicated; I10 Essential (primary) hypertension
CPT/HCPCS: 81003; 87086; 99212

== ENCOUNTER 2024-01-10 12:15 | Outpatient (AMB) | payer OTHER, SELFPAY ==
--- NOTE | 2024-01-10 12:20 | A.OFFPC_ITS ---
Vital Signs 01/10/24 12:24 Height 5 ft 9.29 in Weight 148 lb 8 oz BMI 21.7 BP 100/67 Blood Pressure Location Lt brachial Position Sitting Respiration 16 Pulse 83 Pulse Source Pulse Oximeter Temp 97.9 F Temp Source Temporal Artery Scan Pulse Oximetry (%) 98 Oxygen Delivery Method Room Air Intake Visit Reasons: ISSUES SLEEPING/MED REQUEST Intake Note: pt would like to focus on prostate pain and sleep he feels as if these things are urgent to him Allergies gluten Allergy (Mild, Verified 01/10/24 12:23) Rash Tobacco use date assessed: 05/21/21 HPI ISSUES SLEEPING/MED REQUEST HPI Details 43 y/o male presents today with complain ts of urinary frequency. Also reports difficulty sleeping. [facility] Medical History Anxiety Depression Elevated fasting blood sugar GERD (gastroesophageal reflux disease) Breanne's disease Hypothyroidism Lab test positive for detection of COVID-19 virus Mild anemia Opioid abuse Thyroid nodule Surgical History H/O colonoscopy Hx of endoscopy Hx of wisdom tooth extraction Family History Father T2DM (type 2 diabetes mellitus) Substance use disorder Mother No problems noted. Sister No problems noted. 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 2. Feeling down, depressed, or hopeless: several days 3. Trouble falling or staying asleep, or sleeping too much: more than half the days 4. Feeling tired or having little energy: several days 5. Poor appetite or overeating: several days 6. Feeling bad about yourself - or that you are a failure or have let yourself or your family down: several days 7. Trouble concentrating on things, such as reading the newspaper or watching television: several days 8. Moving or speaking so slowly that other people could have noticed. Or the opposite - being so fidgety or restless that you have been moving around a lot more than usual: not at all 9. Thoughts that you would be better off or of hurting yourself in some way: not at all Source: Developed by Drs. Og Freitas, Charity Baez, Theodore Yusuf and colleagues, with an educational monse from [employer]. Thrive Questionnaire Date Thrive assessed: 02/19/21 I am a: Patient What is your living situation today?: I have a steady place to live Within the past 12 months, did the food you bought not last and you didn't have the money to get more?: I choose not to answer this question Within the past 12 months, did you worry whether your food would run out before you got money to buy more?: Never true Do you have trouble paying for medicines?: I choose not to answer this question Do you have trouble getting transportation to medical appointments?: I choose not to answer this question Do you have trouble paying your heating and electricity bill?: No Do you have trouble taking care of your child, family member or friend?: Yes Do you have trouble with day-to-day activities such as bathing, preparing meals, shopping, managing finances, etc.?: Yes Are you currently unemployed and looking for a job?: No Are you interested in more education?: Yes Please select the resources that you would like help with: None Currently or been in a relationship where the following occur: I choose not to answer THRIVE Score: 0 AUDIT C Alcohol Use Questionnaire (AUDIT-C) 1. How often do you have a drink containing alcohol?: Never Total Score: 0 SHAMIR-7 AMB Questionnaire SHAMIR-7 Date SHAMIR - 7 assessed: 02/19/21 Feeling nervous, anxious, or on edge: 2 = More than half the days Not being able to stop or control worryin = Several days Worrying too much about different things: 1 = Several days Trouble relaxin = Several days Being so restless that it is hard to sit still: 0 = Not at all Becoming easily annoyed or irritable: 0 = Not at all Feeling afraid as if something awful might happen: 1 = Several days Total SHAMIR-7 score (0-4 normal; 5-9 mild; 10-14 moderate; 15-21 severe): 6 Source: Developed by Drs. Og Freitas, Charity Baez, Theodore Yusuf and colleagues, with an educational monse from [employer]. Review of Systems Const Denies chills, Denies fatigue, Denies fever(s), Denies headache(s) and Denies weakness ENT Denies dizziness and Denies headache(s) Card Denies dyspnea Resp Denies cough, Denies dyspnea, Denies wheezing and Denies other (shortness of breath) Musc Denies numbness and Denies tingling Neuro Denies dizziness, Denies headache(s), Denies numbness, Denies tingling and Denies weakness Psych Denies anxiety and Denies depression Endo Denies fatigue Aller/Immun Denies wheezing Physical exam (Primary Care) Vital Signs: Last Vital Signs Temp 97.9 F 01/10/24 12:24 Pulse 83 01/10/24 12:24 Resp 16 01/10/24 12:24 BP 100/67 01/10/24 12:24 Pulse Ox 98 01/10/24 12:24 Oxygen Delivery Method Room Air 01/10/24 12:24 BMI result Body Mass Index 21.7 Tobacco/Smoking Status: Tobacco use Status Tobacco use date assessed 05/21/21 01/10/24 12:21 Patient Tobacco Use Status Former Tobacco user 01/10/24 12:21 e-Cigarette/Vaping Use Never Used 01/10/24 12:21 Thrive Assessment: Date of Thrive Assessment Date Thrive assessed 02/19/21 01/10/24 12:21 Currently or been in a relationship where the following occur: I choose not to answer Const General: well developed; No acute distress Nutritional Appearance: well nourished Orientation/consciousness: patient oriented x3 HENMT Head: Yes normocephalic and Yes atraumatic Eyes General: appearance normal, both eyes and all related structures Pupils: Equal, round and reactive pupils present EOM: EOMs intact bilaterally Resp Effort & Inspection: normal respiratory effort Neuro General: patient oriented x3 and gait normal Cranial nerves: Yes Equal, round and reactive pupils present Psych Affect: normal affect Coding Level of Care Code Est Pt Level 4 (32009) Diagnoses Urinary frequency R35.0 Difficulty sleeping G47.9 Hypothyroidism E03.9 Substance use disorder F19.90 Assessment & Plan Assessment & Plan (1) Urinary frequency: Code(s): R35.0 - Frequency of micturition Category: Medical Plan: Urinary?frequency?with?decreased?urine?stream?and?some?pain Will?give?him?a?script?for?Macrobid?empirically Check?urinalysis?and?urine?culture He?will?trial?Flomax?for?decreased?urine?stream?and?we?can?follow- up?at?next?visit (2) Difficulty sleeping: Code(s): G47.9 - Sleep disorder, unspecified Category: Medical Plan: Patient?had?been?taking?amitriptyline?and?he?notes?that?he?was?once?on?amitripty line-chlordiazepoxide which?he?said?helped?him?sleep. Will?resume?amitriptyline (3) Hypothyroidism: Code(s): E03.9 - Hypothyroidism, unspecified Category: Medical Plan: History?of?hypothyroidism He?is?no?longer?taking?levothyroxine Check?thyroid?hormone?level Discussed?with?patient?that?we?will? want?to?resume?levothyroxine?if?indicated?by?labs (4) Substance use disorder: Code(s): F19.90 - Other psychoactive substance use, unspecified, uncomplicated Category: Medical Plan: Patient?is?asking?for?medication?to?help?him?sleep.??I?have?resumed ?amitriptyline?and?declined?other?medications?due?to?history?of?substance?and?op iate?use?disorder. Will?see?how?he?does?with?this?and?can?discuss?further?at?a?subsequent?visit Orders: Orders Complete Blood Count Auto Diff Today Z00.00 - Encounter for general adult medical examination without abnormal findings Prostate Specific Antigen Scr Today Z12.5 - Encounter for screening for malignant neoplasm of prostate LDL Cholesterol Direct Today E78.5 - Hyperlipidemia, unspecified UA and rflx microscopic Today Z00.00 - Encounter for general adult medical examination without abnormal findings Urine Culture Today R35.0 - Frequency of micturition Comprehensive [place]. Panel Fast Today Z00.00 - Encounter for general adult medical examination without abnormal findings Lipid Panel Today Z00.00 - Encounter for general adult medical examination without abnormal findings Microalbumin, Random (w Creat) Today I10 - Essential (primary) hypertension TSH reflex Free T4 Today Z00.00 - Encounter for general adult medical examination without abnormal findings Medications: New nitrofurantoin monohyd/m-cryst 100 mg (Macrobid) must administer with a meal/food 100 mg PO BID 7 days 14 caps 0RF tamsulosin (Flomax) 0.4 mg PO BEDTIME 90 days 90 caps 1RF Changed From amitriptyline 10 mg PO BEDTIME 14 days 14 tabs 0RF To amitriptyline 10 mg PO BEDTIME 30 days 30 tabs 1RF Refilled levothyroxine 25 mcg PO DAILY 30 days 30 tabs 11RF clindamycin phosphate 1% (Clindagel) 1 appl topical DAILY 30 days 75 mL 0RF
[2024-01-10 12:24] VITALS: BP 100/67; PULSE 83; RESP 16; TEMP 36.6; O2SAT 98; BMI 21.7
== END 2024-01-10 12:59 | disposition home or self-care (01) ==
LOC: HO.HMCFM 12:16
PROVIDERS: PCP Family Medicine; Visit Provider Family Medicine
DX: R35.0 Frequency of micturition (principal); G47.9 Sleep disorder, unspecified; E03.9 Hypothyroidism, unspecified; F19.90 Other psychoactive substance use, unspecified, uncomplicated

== ENCOUNTER 2024-01-11 12:37 | Outpatient (REF) | payer OTHER, SELFPAY ==
[2024-01-11 14:25] LABS: MANUAL DIFF FLAG NO
[2024-01-11 14:29] LABS: Basophils Percent Auto 0.1 % (0-2); Eosinophils Absolute Auto 0.2 X10*3/uL (0.0-0.4); Eosinophils Percent Auto 1.9 % (0-4); Hematocrit 42.2 % (42.0-52.0); Hemoglobin 13.1 g/dl (14.0-18.0); Imm Gran Abs Auto 0.02 X10*3/uL (0.00-0.03); Imm Gran Pct Auto 0.2 % (0.0-0.4); Lymphocytes Absolute Auto 1.5 X10*3/uL (1.2-4.9); Lymphocytes Percent Auto 18.1 % (20-40); Mean Corpuscular Hemoglobin 25.2 pg (27.0-33.0); Mean Corpuscular Volume 81.2 fL (80.0-98.0); Mean Platelet Volume 9.4 fL (9.4-12.4); Monocytes Absolute Auto 0.5 X10*3/uL (0.1-1.2); Monocytes Percent Auto 6.5 % (2-11); Neutrophils Absolute Auto 6.1 x10*3/uL (2.0-8.3); Neutrophils Percent Auto 73.2 % (45-73); Platelet Count 223 X10*3/uL (160-400); Red Cell Distribution Width 13.9 % (11.0-16.0); White Blood Count 8.4 X10*3/uL (4.8-10.8)
[2024-01-11 14:45] LABS: Alanine Aminotransferase 17 U/L (0-40); Albumin Level 4.3 g/dL (3.5-5.0); Alkaline Phosphatase 68 U/L (39-117); Anion Gap 9 (12-20); Aspartate Amino Transferase 23 U/L (5-37); Bilirubin Total 0.5 mg/dL (0.0-1.0); Blood Urea Nitrogen 16 mg/dL (9-16); Carbon Dioxide 31 mmol/L (22-29); Chloride 105 mmol/L (96-108); Cholesterol 161 mg/dL (<200); Estimated Glomerular Filt Rate > 60; Glucose Fasting 113 mg/dL (60-99); HDL Cholesterol 48 mg/dL (>40); LDL Cholesterol Calculated 103 mg/dL (<100); Potassium 4.2 mmol/L (3.3-5.1); Sodium 141 mmol/L (135-145); Total Protein 7.5 g/dL (6.5-8.0); Triglycerides 52 mg/dL (<150)
[2024-01-11 14:59] LABS: Prostate Specific Antigen Scr 0.83 ng/mL (<0.05-4.0)
[2024-01-11 15:00] LABS: TSH reflex Free T4 1.78 uIU/mL (0.32-4.0)
[2024-01-12 09:23] LABS: LDL Cholesterol Direct 106 mg/dL (<100)
== END 2024-01-11 12:38 | disposition home or self-care (01) ==
LOC: HO.WFDLDS 12:37
PROVIDERS: Visit Provider Family Medicine
DX: Z00.00 Encounter for general adult medical examination without abnormal findings (principal); Z12.5 Encounter for screening for malignant neoplasm of prostate; E78.5 Hyperlipidemia, unspecified
CPT/HCPCS: 36415; 80053; 80061; 83721; 84153; 84443; 85025

== ENCOUNTER → 2024-01-26 12:03 | Outpatient (AMB) | payer OTHER, SELFPAY ==
--- NOTE | 2024-01-26 12:00 | MHC.PC.OV ---
Intake Visit Reasons: lab review Allergies gluten Allergy (Mild, Verified 01/26/24 12:00) Rash Tobacco use date assessed: 05/21/21 HPI lab review HPI Details 43 y/o male presents to f/u labwork. Labs drawn 01/11/24. Reviewed labs with pt. Mild anemia. Elevated fasting glucose of 113. He notes he felt like he had a good fast. Triglycerides 52. TC 161. LDL 106. HDL 48. PFSH Medical History Anxiety Depression Elevated fasting blood sugar GERD (gastroesophageal reflux disease) Breanne's disease Hypothyroidism Lab test positive for detection of COVID-19 virus Mild anemia Opioid abuse Thyroid nodule Surgical History H/O colonoscopy Hx of endoscopy Hx of wisdom tooth extraction Family History Father T2DM (type 2 diabetes mellitus) Substance use disorder Mother No problems noted. Sister No problems noted. 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 Current occupational exposures/hazards: No Cognitive needs: No Hearing needs: No Vision needs: Yes (Glasses) Questionnaire Thrive Questionnaire Date Thrive assessed: 01/10/24 I am a: Patient What is your living situation today?: I have a steady place to live Within the past 12 months, did the food you bought not last and you didn't have the money to get more?: I choose not to answer this question Within the past 12 months, did you worry whether your food would run out before you got money to buy more?: Never true Do you have trouble paying for medicines?: I choose not to answer this question Do you have trouble getting transportation to medical appointments?: I choose not to answer this question Do you have trouble paying your heating and electricity bill?: No Do you have trouble taking care of your child, family member or friend?: Yes Do you have trouble with day-to-day activities such as bathing, preparing meals, shopping, managing finances, etc.?: Yes Are you currently unemployed and looking for a job?: No Are you interested in more education?: Yes Please select the resources that you would like help with: None Currently or been in a relationship where the following occur: I choose not to answer THRIVE Score: 0 AUDIT C Alcohol Use Questionnaire (AUDIT-C) 3. How often do you have six or more drinks on one occasion?: Never Total Score: 0 SHAMIR-7 AMB Questionnaire SHAMIR-7 Date SHAMIR - 7 assessed: 02/19/21 Source: Developed by Drs. Og Freitas, Charity Baez, Theodore Yusuf and colleagues, with an educational monse from [employer]. Review of Systems Const Denies chills, Denies fatigue, Denies fever(s), Denies headache(s) and Denies weakness ENT Denies dizziness and Denies headache(s) Card Denies dyspnea Resp Denies cough, Denies dyspnea, Denies wheezing and Denies other (shortness of breath) Musc Denies numbness and Denies tingling Neuro Denies dizziness, Denies headache(s), Denies numbness, Denies tingling and Denies weakness Psych Denies anxiety and Denies depression Endo Denies fatigue Aller/Immun Denies wheezing Physical exam (Primary Care) Tobacco/Smoking Status: Tobacco use Status Tobacco use date assessed 05/21/21 01/26/24 12:03 Patient Tobacco Use Status Former Tobacco user 01/26/24 12:03 e-Cigarette/Vaping Use Never Used 01/26/24 12:03 Thrive Assessment: Date of Thrive Assessment Date Thrive assessed 01/10/24 01/26/24 12:03 Currently or been in a relationship where the following occur: I choose not to answer Telehealth Telehealth Telehealth Platform: Telephone Location of provider rendering services: practice address Location of patient: address on file Patient Identification confirmed using: Name, : Yes Telehealth method: voice only Patient verbally consented to treatment: Yes Patient verbally consented to billing insurance company: Yes Patient informed of any privacy concerns related to visit: Yes Minutes spent on Phone/Video with Pt.: 10 Coding Level of Care Code Tele Est Pt Level 2 (97380) Diagnoses Elevated fasting blood sugar R73.01 Mild anemia D64.9 Elevated LDL cholesterol level E78.00 Urinary frequency R35.0 Rash R21 Insomnia G47.00 Assessment & Plan Assessment & Plan (1) Elevated fasting blood sugar: Code(s): R73.01 - Impaired fasting glucose Category: Medical Plan: Encouraged?diet?lower?in?sugars?and?starches Will?have?him?return?in?2?months?to?check?A1c?test?and?discuss (2) Mild anemia: Code(s): D64.9 - Anemia, unspecified Category: Medical Plan: Will?continue?to?monitor (3) Elevated LDL cholesterol level: Code(s): E78.00 - Pure hypercholesterolemia, unspecified Category: Medical Plan: Encouraged?diet?lower?in?saturated?fats?and?cholesterol (4) Urinary frequency: Code(s): R35.0 - Frequency of micturition Category: Medical Plan: Last?urinalysis?did?not?suggest?UTI. Had?treated?empirically?with?Macrobid. Urinalysis?was?maximally?concentrated Increase?hydration Encouraged?scheduled?voids (5) Rash: Code(s): R21 - Rash and other nonspecific skin eruption Plan: Referred?to?dermatology He?can?try?betamethasone?cream?while?awaiting?appointment (6) Insomnia: Code(s): G47.00 - Insomnia, unspecified Category: Medical Plan: Ongoing?anxiety?and?insomnia. Amitriptyline?helps?but?still?having?significant?difficulty Referred?to?[facility]?psychiatric?consult?he Orders: Referrals Psychiatry Outpatient Consultation Service F19.90 - Other psychoactive substance use, unspecified, uncomplicated, F41.9 - Anxiety disorder, unspecified, G47.00 - Insomnia, unspecified Dermatology Referral R21 - Rash and other nonspecific skin eruption Medications: New betamethasone valerate 0.1% 1 appl topical BID PRN 45 grams 2RF skin irritation 14 days
--- OUTSIDE RECORDS SUMMARY | 2024-02-02 11:56 | XMS_ITS | Continuity of Care Document ---
Author Organization [facility] ter Address [address] [place] [id number]- Care Team Providers Care Kn[employer] Sewer Name Role Phone Ofe MENDOZA, Myles Bloom Primary Care Physician Encounter [facility] [place] Date(s): 11/25/19 - 11/25/[address] [address]- [facility] Discharge Disposition: A-D/C Home Attending Physician: Solo Elise MD Admitting Physician: Solo Elise MD Referring Physician: Not on Staff, Referring MD Allergies, Adverse Reactions, Alerts No Known Medication Allergies Vital Signs Most recent to oldest [Reference Range]: 1 Oxygen Saturation [94-100 %] 100 % (11/25/19 1:19 PM) Pulse Rate [55-90 bpm] 78 bpm (11/25/19 1:19 PM) Blood Pressure [90-138/55-84 mm Hg] 128/ 74mm Hg (11/25/19 1:19 PM) Respiratory Rate [16-30 br/min] 18 br/mi n (11/25/19 1:19 PM) Temperature [96.8-100.4 DegF] 98.1 DegF (11/25/19 1:19 PM) Mode of Delivery (Oxygen) Room air (11/25/19 1:19 PM) Blood pressure sites Arm, right (11/25/19 1:19 PM) Temperature Route Oral (11/25/19 1:19 PM)
--- OUTSIDE RECORDS SUMMARY | 2024-02-02 11:56 | XMS_ITS | Continuity of Care Document ---
Author Organization [facility] ter Address [address] [place] [id number]- Care Team Providers Care Juice Scaleman Name Role Phone Ofe MENDOZA, Myles Bloom Primary Care Physician [place] [facility] [place] - 10/08/[address] [address]- Encounter Diagnosis Chills(Final) - 10/08/20 Discharge Disposition: A-D/C Home Attending Physician: Silvia Sharma MD Admitting Physician: Silvia Sharma MD Referring Physician: Not on Staff, Referring MD Allergies, Adverse Reactions, Alerts No Known Medication Allergies Results Radiology Reports * Exam Date Time Procedure Performing Provider Status 10/08/20 6:15 AM Chest Portable Blanquita Johnston (Verified) Notes: (Chest Portable) Reason For Exam: weakness;Other: RESULT: Chest Portable Chest Portable upright Hx of Present Illness: states he feels weakness, chills , sweating when he reach his home from workaround 12mn .; Reason: Other:; weakness; Clinical Question(s): CHF COMPARISON: 04/05/2019. FINDINGS: LINES AND TUBES: None. LUNGS AND PLEURA: No acute cardiopulmonary process IMPRESSION: No acute cardiopulmonary process I have personally reviewed the images and I agree with this report. WSN: [id number] Ordering Physician: Deepthi Jackson Dictated By: Yulia Baez MD Dictated Date/Time: 10/08/20 7:59 am Reviewed By: Silver Clayton MD Signed By: Silver Clayton MD Signed Date/Time: 10/08/20 8:04 am Transcribed By: JIMMIE Transcribed Date/Time: 10/08/20 7:50 am Vital Signs Most recent to oldest [Reference Range]: 1 2 3 Height 176 cm (10/08/20 3:21 AM) Oxygen Saturation [94-100 %] 99 % (10/08/20 7:19 AM) 100 % (10/08/20 2:56 AM) Pulse Rate [55-90 bpm] 77 bpm (10/08/20 7:19 AM) 88 bpm (10/08/20 3:21 AM) 60 bpm (10/08/20 2:56 AM) Blood Pressure [90-138/55-84 mm Hg] 103/66mm Hg (10/08/20 7:19 AM) 130/81mm Hg (10/08/20 3:21 AM) 138/84mm Hg (10/08/20 2:56 AM) Respiratory Rate [16-30 br/min] 17 br/min (10/08/20 7:19 AM) 21 br/min (10/08/20 3:21 AM) 17 br/min (10/08/20 2:56 AM) Temperature [96.8-100.4 DegF] 97.9 DegF (10/08/20 7:19 AM) 97.5 DegF (10/08/20 3:21 AM) 97.8 DegF (10/08/20 2:56 AM) Mode of Delivery (Oxygen) Room air (10/08/20 7:19 AM) Room air (10/08/20 3:21 AM) Room air (10/08/20 2:56 AM) Blood pressure sites Arm, left (10/08/20 7:19 AM) Arm, left (10/08/20 3:21 AM) Arm, left (10/08/20 2:56 AM) Temperature Route Oral (10/08/20 7:19 AM) Oral (10/08/20 3:21 AM) Oral (10/08/20 2:56 AM)
== END ==
LOC: HO.HMCFM 12:03
PROVIDERS: PCP Family Medicine; Visit Provider Family Medicine
DX: R73.01 Impaired fasting glucose (principal); D64.9 Anemia, unspecified; E78.00 Pure hypercholesterolemia, unspecified; R35.0 Frequency of micturition; R21 Rash and other nonspecific skin eruption; G47.00 Insomnia, unspecified

== ENCOUNTER 2024-03-28 16:15 | Outpatient (AMB) | payer OTHER, SELFPAY ==
--- NOTE | 2024-03-28 16:13 | A.OFFPC_ITS ---
Intake Visit Reasons: lab review Allergies gluten Allergy (Mild, Verified 03/28/24 16:14) Rash Tobacco use date assessed: 05/21/21 HPI lab review HPI Details 43 y/o male presents to f/u chronic [facility] itions. Had already reviewed his labs. Notes R side of jaw is swollen and hurt to touch. [facility] Medical History Anxiety Depression Elevated fasting blood sugar GERD (gastroesophageal reflux disease) Breanne's disease Hypothyroidism Lab test positive for detection of COVID-19 virus Mild anemia Opioid abuse Thyroid nodule Surgical History H/O colonoscopy Hx of endoscopy Hx of wisdom tooth extraction Family History Father T2DM (type 2 diabetes mellitus) Substance use disorder Mother No problems noted. Sister No problems noted. 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 Og Freitas, Charity Baez, Theodore Yusuf and colleagues, with an educational monse from [employer]. Physical exam (Primary Care) Tobacco/Smoking Status: Tobacco use Status Tobacco use date assessed 05/21/21 03/28/24 16:15 Patient Tobacco Use Status Former Tobacco user 03/28/24 16:15 e-Cigarette/Vaping Use Never Used 03/28/24 16:15 Thrive Assessment: Date of Thrive Assessment Date Thrive assessed 01/10/24 03/28/24 16:15 Telehealth Telehealth Telehealth Platform: Telephone Location of provider rendering services: practice address Location of patient: address on file Patient Identification confirmed using: Name, : Yes Telehealth method: voice only Patient verbally consented to treatment: Yes Patient verbally consented to billing insurance company: Yes Patient informed of any privacy concerns related to visit: Yes Minutes spent on Phone/Video with Pt.: 6 Coding Level of Care Code Tele Est Pt Level 2 (05889) Diagnoses Jaw pain R68.84 Elevated fasting blood sugar R73.01 Elevated LDL cholesterol level E78.00 Assessment & Plan Assessment & Plan (1) Jaw pain: Code(s): R68.84 - Jaw pain Category: Medical Plan: Patient?notes?enlarged?lump?under?his?jaw He?will?use?warm?compresses?and?warm?saltwater?swish?and?gargle If?he?is?getting?worse?he?will?come?to?the?office?sooner?otherwis e?he?will?come?in?next?week?for?evaluation.??May?need?antibiotic (2) Elevated fasting blood sugar: Code(s): R73.01 - Impaired fasting glucose Category: Medical Plan: History?of?elevated?fasting?blood?sugars. Patient?says?he?checks?his?own?blood?sugars?which?are?often?high Will?check?this?in?the?office (3) Elevated LDL cholesterol level: Code(s): E78.00 - Pure hypercholesterolemia, unspecified Category: Medical Plan: Mildly?elevated?LDL?cholesterol Encouraged?him?to?work?on?a?diet?lower?in?saturated?fats?and?cholesterol Not?due?to?recheck?this?yet
== END 2024-03-29 16:01 | disposition home or self-care (01) ==
LOC: HO.HMCFM 16:15
PROVIDERS: PCP Family Medicine; Visit Provider Family Medicine
DX: R73.01 Impaired fasting glucose (principal); R68.84 Jaw pain; E78.00 Pure hypercholesterolemia, unspecified